=== PATIENT | female | born 1965 | race Caucasian/White ===

== ENCOUNTER 2021-04-16 11:29 | Day surgery (SDC) | payer BC ==
[2021-04-15 09:54] VITALS: BMI 18.4
[~2021-04-16 11:29] MED LIST: ALBUTEROL NEB (CONC) 2.5 MG/0.5 ML INHALATION ONE; LACTATED RINGERS 1,000 ML IV SCH; LIDOCAINE 2% (PF) 20 MG/ML 5 ML VIAL INHALATION ONE; LIDOCAINE VISCOUS 300 MG/15 ML CUP MUCOUS MEM ONE
[2021-04-16 11:58] VITALS: TEMP 97.1
[2021-04-16] MEDS ORDERED: PROPOFOL 10 MG/ML 20 ML VIAL IV ONE (12:03)
[2021-04-16] MEDS ORDERED: MIDAZOLAM 2 MG/2 ML VIAL ONE (12:03)
[2021-04-16] MEDS ORDERED: KETAMINE 10 MG/ML 20 ML VIAL ONE (12:03)
[2021-04-16] MEDS ORDERED: LIDOCAINE 1% INJ 10MG/ML (20 ML MDV) ONE (12:03)
[2021-04-16] MEDS ORDERED: LIDOCAINE 2% INJ 20 MG/ML INTRATRACH ONE ×2 (12:15)
[2021-04-16 12:46] VITALS: BP 113/50; PULSE 68; RESP 16
--- NOTE | 2021-04-16 15:43 | PCN ---
PROCEDURE NOTE OPERATIVE REPORT: Bronchoscopy, and bronchial washings of the right mainstem bronchus and the right upper lobe bronchus. PREOPERATIVE DIAGNOSES: Abnormal CT of the chest, questioning right mainstem endobronchial tumor or mucus plug. POSTOPERATIVE DIAGNOSES: Right mainstem and right upper lobe mucus plugs. No evidence of endobronchial tumor. ANESTHESIA: IV conscious sedation. PROCEDURE: The patient was prepared according the bronchoscopy protocol. She was placed in a supine position, O2 was applied via nasal cannula and we monitored the O2 saturation continuously, cardiac rhythm was continuously monitored. Blood pressure was intermittently monitored and pulse oximetry was continuously monitored. After adequate IV conscious sedation, a 1 mL of lidocaine was instilled in the left naris, and the bronchoscope was inserted through the left naris down to the area of the vocal cords. Vocal cords were patent. More lidocaine was applied over the vocal cords, the bronchoscope was advanced further down to the trachea. Thorough examination was done of the trachea, right mainstem bronchus, left mainstem bronchus, right upper lobe, right middle lobe, right lower lobe, left upper lobe lingula and left lower lobe. There was no evidence of endobronchial tumors. However, there was scattered mucus plugs noted in the right mainstem bronchus, and in the right upper lobe bronchus. These were suctioned and lavaged easily. Further examination was done throughout the airways, and there was no evidence of any other mucus plugs. Procedure was well tolerated, no evidence of any complications. The mucus plugs were sent for cultures and for cytology. Again, no evidence of any complications during or after this procedure. MMODL / IJN: [id number] /
== END 2021-04-16 13:04 | disposition home or self-care (01) ==
LOC: ORWHC2ENDO 11:29
PROVIDERS: ATTEND Internal Medicine
DX: R91.8 Other nonspecific abnormal finding of lung field (principal); I10 Essential (primary) hypertension; J44.9 Chronic obstructive pulmonary disease, unspecified; F17.200 Nicotine dependence, unspecified, uncomplicated; Z79.899 Other long term (current) drug therapy
CPT/HCPCS: 31624; 87070; 87205; J2001 ×2; J2250; J2704; 88108; 88305